=== PATIENT | male | born 1985 ===

== ENCOUNTER 2021-05-21 15:40 | Emergency (ER) | payer OTHER ==
[~2021-05-21] VITALS: Ht 175.3 cm; Wt 95.3 kg
[2021-05-21] MEDS ORDERED: SENNA PLUS TAB1 EACH (15:50)
[2021-05-22] MEDS ORDERED: CIPRO500 MG PO (06:10)
[2021-05-22] MEDS ORDERED: LEVSIN/SL0.125 MG SL (06:10)
[2021-05-22] MEDS ORDERED: METRONIDAZOLE500 MG PO (06:10)
[2021-05-22] MEDS ORDERED: INTESTINEX680 M1 PO (06:10)
== END 2021-05-22 06:16 ==
LOC: ER 15:40
DX: K52.89 Other specified noninfective gastroenteritis and colitis (principal)